=== PATIENT | male | born 1945 | race African-American/Black ===

== ENCOUNTER 2022-05-27 12:02 | Inpatient (IN) | payer MEDICARE ==
[~2022-05-27] VITALS: Ht 175.3 cm; Wt 73.4 kg
[2022-05-27] MEDS ORDERED: MORPHINE SULFATE 4 MG/ML CPJ (NOT FOR IM USE) IV STA (12:20)
[2022-05-27] MEDS ORDERED: SODIUM CHLORIDE 0.9% 1,000 ML IV ONE ×3 (12:30→16:15)
[2022-05-27 13:12] LABS: HEMATOCRIT. 52.9 % (42.0-52.0); HEMOGLOBIN. 17.8 g/dL (14.0-18.0); MEAN CORPUSCULAR HEMOGLOBIN 29.6 pg (28.0-32.0); MEAN CORPUSCULAR VOLUME 87.9 fL (80.0-94.0); MEAN PLATELET VOLUME 7.9 fl (7.4-10.4); PLATELET 265 x1000/uL (130-400); RED BLOOD CELL COUNT 6.02 mill/uL (4.7-6.1); RED CELL DISTRIBUTION WIDTH 12.6 % (11.6-14.6)
[2022-05-27 13:28] LABS: CREATINE KINASE 509 IU/L (39-308)
[2022-05-27 13:34] LABS: CHLORIDE 94 mEq/L (98-107)
[2022-05-27 13:57] LABS: PLATELET ESTIMATE NORMAL
[2022-05-27] MEDS ORDERED: ONDANSETRON HCL 4MG/2ML INJ IV ONE (14:30)
[2022-05-27] MEDS ORDERED: CEFTRIAXONE 2GM/50ML (ADDEASE) 50 ML IV ONE (16:15)
[2022-05-27] MEDS ORDERED: CEFTRIAXONE 2 G in DEXTROSE 5% WATER 50 ML IV NR (16:15)
[2022-05-27 16:26] LABS: CLARITY URINE CLEAR (CLEAR); COLOR URINE YELLOW (YELLOW); KETONES URINE 1+ (NEGATIVE); LEUKOCYTE ESTERASE URINE NEGATIVE (NEGATIVE); NITRITE URINE NEGATIVE (NEGATIVE); OCCULT BLOOD URINE 1+ (NEGATIVE); PROTEIN URINE 1+ (NEGATIVE)
[2022-05-27] MEDS ORDERED: MORPHINE SULFATE 4 MG/ML CPJ (NOT FOR IM USE) IV ONE (17:15)
[2022-05-27] MEDS ORDERED: LABETALOL 5MG/ML SYR 20 MG/4 ML SYRINGE IV ONE (20:30)
[2022-05-27 21:30] VITALS: BP 182/90
[2022-05-27 21:50] VITALS: BP 182/90
[2022-05-28] VITALS (8 sets, daily range): BP systolic 133–185; BP diastolic 63–95
[2022-05-28] MEDS ORDERED: SODIUM CHLORIDE 0.9% 1,000 ML IV SCH
[2022-05-28] MEDS ORDERED: CEFTRIAXONE 1GM PREMIX 50 ML IV SCH
[2022-05-28] MEDS: ONDANSETRON HCL 4MG/2ML INJ IV PRN (00:37)
[2022-05-28] MEDS: HYDRALAZINE 20MG/ML VIAL IV PRN (00:37)
[2022-05-28] MEDS: MORPHINE SULFATE 2 MG/ML CPJ (NOT FOR IM USE) IV PRN ×6 (00:37→21:14)
[2022-05-28] MEDS: METRONIDAZOLE 500 MG PREMIX 100 ML IV SCH ×3 (01:40→17:39)
[2022-05-28 07:01] LABS: HEMATOCRIT. 47.2 % (42.0-52.0); HEMOGLOBIN. 15.5 g/dL (14.0-18.0); MEAN CORPUSCULAR HEMOGLOBIN 29.8 pg (28.0-32.0); MEAN CORPUSCULAR VOLUME 90.7 fL (80.0-94.0); MEAN PLATELET VOLUME 7.8 fl (7.4-10.4); PLATELET 196 x1000/uL (130-400); RED BLOOD CELL COUNT 5.21 mill/uL (4.7-6.1); RED CELL DISTRIBUTION WIDTH 12.7 % (11.6-14.6)
[2022-05-28 07:26] LABS: CHLORIDE 105 mEq/L (98-107)
[2022-05-28 08:45] LABS: CREATINE KINASE 602 IU/L (39-308)
[2022-05-28] MEDS: PANTOPRAZOLE SODIUM 40 MG/VIAL IV SCH ×2 (12:06→17:45)
[2022-05-28 13:26] LABS: PLATELET ESTIMATE NORMAL
[2022-05-28] MEDS: DEXT 5%/0.9% NACL 1,000 ML IV SCH (14:17)
[2022-05-28] MEDS ORDERED: CLONIDINE HCL 0.1MG/24HR PATCH TD SCH (15:30)
[2022-05-28 15:34] LABS: *AMPHETAMINES SCREEN URINE NEGATIVE (NEGATIVE); *BARBITURATES SCREEN URINE NEGATIVE (NEGATIVE); *BENZODIAZEPINES SCREEN URINE NEGATIVE (NEGATIVE); *COCAINE SCREEN URINE NEGATIVE (NEGATIVE); CANNABINOID URINE SCREEN NEGATIVE (NEGATIVE); METHADONE URINE SCREEN NEGATIVE (NEGATIVE); OPIATES URINE SCREEN PRESUMTIVE POSITIVE (NEGATIVE); PHENCYCLIDINE URINE SCREEN NEGATIVE (NEGATIVE)
[2022-05-28] MEDS ORDERED: NALOXONE HCL 0.4MG/ML VIAL IV PRN (17:15)
[2022-05-28] MEDS: CEFTRIAXONE 1,000 MG in DEXTROSE 5% WATER 50 ML IV SCH (17:38)
[2022-05-28 20:03] LABS: HEMATOCRIT 41.2 % (42.0-52.0); HEMOGLOBIN 13.8 g/dL (14.0-18.0)
[2022-05-28 20:20] LABS: INR 1.1; PROTHROMBIN TIME 11.3 sec (9.6-11.0)
[2022-05-28 20:54] LABS: FOLIC ACID (FOLATE) SERUM 8.8 ng/mL (>5.38)
[2022-05-28] MEDS ORDERED: SODIUM CHLORIDE 0.9% 500 ML IV ONE (21:45)
[2022-05-28] MEDS ORDERED: BUPIVACAINE HCL/PF 0.5% (5MG/ML) 10ML ONE (22:37)
[2022-05-28] MEDS ORDERED: LIDOCAINE HCL 1% 20ML VIAL (Pyxis) INJ ONE (22:37)
[2022-05-28] MEDS ORDERED: ROCURONIUM BROMIDE 10MG/ML VIAL 5ML IV ONE (22:47)
[2022-05-28] MEDS ORDERED: ETOMIDATE 2MG/ML 10ML VIAL IV ONE (22:47)
[2022-05-28] MEDS ORDERED: MIDAZOLAM HCL 2 MG/2 ML VIAL ONE (22:55)
[2022-05-28] MEDS ORDERED: DEXAMETHASONE 4MG/ML 1ML VIAL ONE (23:02)
[2022-05-28] MEDS ORDERED: ONDANSETRON HCL 4MG/2ML INJ ONE (23:02)
[2022-05-28] MEDS ORDERED: CEFAZOLIN SODIUM 1000MG/VIAL ONE (23:03)
[2022-05-28] MEDS ORDERED: GLYCOPYRROLATE 0.2 MG/ML 2ML VIAL ONE (23:03)
[2022-05-28] MEDS ORDERED: FENTANYL CITRATE/PF 50MCG/ML 2ML VIAL ONE (23:03)
[2022-05-29] VITALS (9 sets, daily range): BP systolic 146–193; BP diastolic 59–99
[2022-05-29] MEDS ORDERED: ONDANSETRON HCL 4MG/2ML INJ IV PRN (00:15)
[2022-05-29] MEDS ORDERED: HYDROMORPHONE HCL/PF 2MG/ML CPJ IV PRN (00:15)
[2022-05-29] MEDS ORDERED: MEPERIDINE HCL/PF 25MG/ML CPJ IV PRN (00:15)
[2022-05-29] MEDS: DEXT 5%/0.9% NACL 1,000 ML IV SCH ×3 (00:15→20:08)
[2022-05-29] MEDS ORDERED: POLYMYXIN B SULFATE 500000 UNITS/VIAL ONE (00:51)
[2022-05-29] MEDS ORDERED: ALBUMIN HUMAN 12.5GM/50ML (25%) IV ONE (00:58)
[2022-05-29] MEDS ORDERED: FENTANYL CITRATE/PF 50MCG/ML 2ML VIAL ONE (01:08)
[2022-05-29] MEDS: FENTANYL CITRATE/PF 50MCG/ML 2ML VIAL IV PRN ×4 (01:50→02:26)
[2022-05-29] MEDS ORDERED: LABETALOL 5MG/ML SYR 20 MG/4 ML SYRINGE IV PRN (02:15)
[2022-05-29] MEDS: METRONIDAZOLE 500 MG PREMIX 100 ML IV SCH ×3 (04:11→18:09)
[2022-05-29] MEDS: HYDRALAZINE 20MG/ML VIAL IV PRN ×2 (06:41→20:35)
[2022-05-29 07:41] LABS: HEMATOCRIT. 48.8 % (42.0-52.0); HEMOGLOBIN. 15.9 g/dL (14.0-18.0); MEAN CORPUSCULAR HEMOGLOBIN 29.6 pg (28.0-32.0); MEAN CORPUSCULAR VOLUME 90.8 fL (80.0-94.0); MEAN PLATELET VOLUME 8.2 fl (7.4-10.4); PLATELET 178 x1000/uL (130-400); RED BLOOD CELL COUNT 5.37 mill/uL (4.7-6.1); RED CELL DISTRIBUTION WIDTH 12.9 % (11.6-14.6)
[2022-05-29 08:36] LABS: CHLORIDE 115 mEq/L (98-107)
[2022-05-29 08:46] LABS: PHOSPHORUS 3.1 mg/dL (2.5-4.9)
[2022-05-29] MEDS: PANTOPRAZOLE SODIUM 40 MG/VIAL IV SCH ×2 (09:17→16:55)
[2022-05-29] MEDS: MORPHINE SULFATE 4 MG/ML CPJ (NOT FOR IM USE) IV PRN ×3 (10:15→20:09)
[2022-05-29 11:48] LABS: BG BASE EXCESS -2.9 mmol/L (-2.0-2.0); BG CARBOXYHEMOGLOBIN 0.8 % (0.5-1.5); BG DEOXYHEMOGLOBIN 3.1 % (0.0-5.0); BG FRACTION INSPIRED OXYGEN 21; BG HCO3 ACT 21.1 mmol/L (22.0-26.0); BG METHEMOGLOBIN 0.4 % (0.0-1.5); BG OXYGEN SATURATION 96.9 % (92.0-98.5); BG OXYHEMOGLOBIN 95.7 % (94.0-97.0); BG PCO2 34.7 mmHg (35.0-45.0); BG PH 7.402 (7.350-7.450); BG PO2 86.9 mmHg (75.0-100.0); BG SAMPLE SITE LEFT RADIAL; BG TOTAL HEMOGLOBIN 15.1 g/dL (12.0-18.0); BG VENT MODE ROOM AIR
[2022-05-29 13:06] LABS: HEMOGLOBIN 14.6 g/dL (14.0-18.0)
[2022-05-29 14:16] LABS: PLATELET ESTIMATE NORMAL
[2022-05-29] MEDS ORDERED: CLONIDINE HCL 0.2MG/24HR PATCH TD SCH (15:00)
[2022-05-29] MEDS: CEFTRIAXONE 1,000 MG in DEXTROSE 5% WATER 50 ML IV SCH (16:51)
[2022-05-29] MEDS: LABETALOL 5MG/ML SYR 20 MG/4 ML SYRINGE IV PRN (23:15)
[2022-05-30] VITALS: BP 155/78
[2022-05-30] MEDS: MORPHINE SULFATE 4 MG/ML CPJ (NOT FOR IM USE) IV PRN (00:31)
[2022-05-30] MEDS: METRONIDAZOLE 500 MG PREMIX 100 ML IV SCH ×3 (01:12→18:21)
[2022-05-30 04:00] VITALS: BP 115/65
[2022-05-30] MEDS: DEXT 5%/0.9% NACL 1,000 ML IV SCH (05:18)
[2022-05-30 07:14] LABS: HEMATOCRIT. 39.9 % (42.0-52.0); HEMOGLOBIN. 12.9 g/dL (14.0-18.0); MEAN CORPUSCULAR HEMOGLOBIN 28.9 pg (28.0-32.0); MEAN CORPUSCULAR VOLUME 89.2 fL (80.0-94.0); MEAN PLATELET VOLUME 8.4 fl (7.4-10.4); PLATELET 211 x1000/uL (130-400); RED BLOOD CELL COUNT 4.47 mill/uL (4.7-6.1); RED CELL DISTRIBUTION WIDTH 12.5 % (11.6-14.6)
[2022-05-30 07:32] LABS: CHLORIDE 120 mEq/L (98-107)
[2022-05-30 08:00] VITALS: BP 167/60
[2022-05-30] MEDS: PANTOPRAZOLE SODIUM 40 MG/VIAL IV SCH ×2 (10:14→18:21)
[2022-05-30] MEDS: HYDRALAZINE 20MG/ML VIAL IV PRN ×2 (10:14→21:18)
[2022-05-30 10:41] LABS: PLATELET ESTIMATE NORMAL
[2022-05-30 12:00] VITALS: BP 176/93
[2022-05-30] MEDS ORDERED: KCL 20MEQ/100ML PREMIX 100 ML IV SCH (15:00)
[2022-05-30 16:00] VITALS: BP 158/67
[2022-05-30] MEDS: DEXT 5%/0.2% NACL 1,000 ML IV SCH (16:03)
[2022-05-30] MEDS: CEFTRIAXONE 1,000 MG in DEXTROSE 5% WATER 50 ML IV SCH (16:47)
[2022-05-30 20:00] VITALS: BP 177/78
[2022-05-31] VITALS: BP 146/76
[2022-05-31] MEDS: METRONIDAZOLE 500 MG PREMIX 100 ML IV SCH ×3 (01:14→16:40)
[2022-05-31 04:00] VITALS: BP 164/58
[2022-05-31 08:00] VITALS: BP 155/90
[2022-05-31] MEDS: PANTOPRAZOLE SODIUM 40 MG/VIAL IV SCH ×2 (08:42→16:40)
[2022-05-31] MEDS: DEXT 5%/0.2% NACL 1,000 ML IV SCH ×2 (08:42)
[2022-05-31] MEDS: ENOXAPARIN 30MG/0.3ML SYR SUBCUT SCH (11:36)
[2022-05-31 12:00] VITALS: BP 152/89
[2022-05-31] MEDS ORDERED: DEXT 5% WATER 100 ML IV ONE (15:15)
[2022-05-31 16:00] VITALS: BP 156/78
[2022-05-31] MEDS: DEXTROSE 5% WATER 1,000 ML IV SCH (16:40)
[2022-05-31] MEDS: CEFTRIAXONE 1,000 MG in DEXTROSE 5% WATER 50 ML IV SCH (16:40)
[2022-05-31 20:00] VITALS: BP 176/147
[2022-05-31] MEDS: HYDRALAZINE 20MG/ML VIAL IV PRN (21:06)
[2022-05-31] MEDS: MORPHINE SULFATE 4 MG/ML CPJ (NOT FOR IM USE) IV PRN (21:06)
[2022-06-01] VITALS: BP 175/68
[2022-06-01] MEDS: HYDRALAZINE 20MG/ML VIAL IV PRN ×3 (01:05→12:38)
[2022-06-01] MEDS: METRONIDAZOLE 500 MG PREMIX 100 ML IV SCH ×3 (01:05→16:45)
[2022-06-01 04:00] VITALS: BP 169/68
[2022-06-01] MEDS: DEXTROSE 5% WATER 1,000 ML IV SCH ×2 (04:52→16:46)
[2022-06-01] MEDS: LABETALOL 5MG/ML SYR 20 MG/4 ML SYRINGE IV PRN (06:11)
[2022-06-01 07:23] LABS: HEMATOCRIT. 38.3 % (42.0-52.0); HEMOGLOBIN. 12.9 g/dL (14.0-18.0); MEAN CORPUSCULAR HEMOGLOBIN 29.7 pg (28.0-32.0); MEAN CORPUSCULAR VOLUME 88.1 fL (80.0-94.0); MEAN PLATELET VOLUME 8.3 fl (7.4-10.4); PLATELET 252 x1000/uL (130-400); RED BLOOD CELL COUNT 4.35 mill/uL (4.7-6.1); RED CELL DISTRIBUTION WIDTH 12.7 % (11.6-14.6)
[2022-06-01 08:00] VITALS: BP 174/81
[2022-06-01 08:04] LABS: CHLORIDE 119 mEq/L (98-107)
[2022-06-01] MEDS: PANTOPRAZOLE SODIUM 40 MG/VIAL IV SCH ×2 (08:17→16:45)
[2022-06-01 08:18] LABS: PHOSPHORUS 1.2 mg/dL (2.5-4.9)
[2022-06-01] MEDS: ENOXAPARIN 30MG/0.3ML SYR SUBCUT SCH (08:18)
[2022-06-01] MEDS: KCL 20MEQ/100ML PREMIX 100 ML IV SCH ×2 (10:33→11:52)
[2022-06-01] MEDS ORDERED: POTASSIUM PHOS,M-BASIC-D-BASIC 30 MMOL in DEXT 5% WATER 500 ML IV NR (10:45)
[2022-06-01 12:00] VITALS: BP 176/77
[2022-06-01] MEDS: AMLODIPINE 10MG TABLET PO SCH (13:00)
[2022-06-01] MEDS: HYDRALAZINE HCL 25MG TABLET PO SCH ×2 (13:00→21:24)
[2022-06-01 13:32] LABS: PLATELET ESTIMATE NORMAL
[2022-06-01] MEDS: CEFTRIAXONE 1,000 MG in DEXTROSE 5% WATER 50 ML IV SCH (15:09)
[2022-06-01 16:00] VITALS: BP 147/76
[2022-06-01 20:00] VITALS: BP 148/70
[2022-06-01] MEDS: METOCLOPRAMIDE HCL 10MG/2ML VIAL IV SCH (21:08)
[2022-06-01] MEDS: MORPHINE SULFATE 4 MG/ML CPJ (NOT FOR IM USE) IV PRN (21:46)
[2022-06-02] VITALS (7 sets, daily range): BP systolic 115–158; BP diastolic 69–88
[2022-06-02] MEDS: METOCLOPRAMIDE HCL 10MG/2ML VIAL IV SCH ×4 (00:25→17:03)
[2022-06-02] MEDS: METRONIDAZOLE 500 MG PREMIX 100 ML IV SCH (00:42)
[2022-06-02] MEDS: DEXTROSE 5% WATER 1,000 ML IV SCH ×2 (06:00→13:51)
[2022-06-02 07:33] LABS: HEMATOCRIT. 41.3 % (42.0-52.0); HEMOGLOBIN. 13.5 g/dL (14.0-18.0); MEAN CORPUSCULAR HEMOGLOBIN 28.8 pg (28.0-32.0); MEAN CORPUSCULAR VOLUME 88.1 fL (80.0-94.0); MEAN PLATELET VOLUME 7.9 fl (7.4-10.4); PLATELET 257 x1000/uL (130-400); RED BLOOD CELL COUNT 4.68 mill/uL (4.7-6.1); RED CELL DISTRIBUTION WIDTH 13.1 % (11.6-14.6)
[2022-06-02 08:25] LABS: PHOSPHORUS 3.5 mg/dL (2.5-4.9)
[2022-06-02 09:58] LABS: PLATELET ESTIMATE NORMAL
[2022-06-02] MEDS: PANTOPRAZOLE SODIUM 40 MG/VIAL IV SCH ×2 (09:59→17:03)
[2022-06-02] MEDS: HYDRALAZINE HCL 25MG TABLET PO SCH ×2 (09:59→20:30)
[2022-06-02] MEDS: AMLODIPINE 10MG TABLET PO SCH (10:00)
[2022-06-02] MEDS: ENOXAPARIN 30MG/0.3ML SYR SUBCUT SCH (10:00)
[2022-06-02] MEDS ORDERED: KCL 20MEQ/100ML PREMIX 100 ML IV NR (11:00)
[2022-06-02] MEDS ORDERED: CEFTRIAXONE 1GM PREMIX 50 ML IV SCH (16:00)
[2022-06-02] MEDS: HYDRALAZINE 20MG/ML VIAL IV PRN (17:34)
[2022-06-02] MEDS: ONDANSETRON HCL 4MG/2ML INJ IV PRN (20:30)
[2022-06-02] MEDS: MORPHINE SULFATE 4 MG/ML CPJ (NOT FOR IM USE) IV PRN (20:31)
[2022-06-02] MEDS ORDERED: NOREPINEPHRINE 8 MG in DEXT 5% WATER 242 ML IV PRN (21:45)
[2022-06-02] MEDS ORDERED: EPINEPHRINE 10 MG in SODIUM CHLORIDE 0.9% 250 ML IV PRN (22:15)
[2022-06-03] MEDS ORDERED: ENOXAPARIN 40MG/0.4ML SYR SUBCUT SCH (09:00)
[2022-06-03] MEDS ORDERED: SODIUM BICARBONATE 8.4% 1 MEQ/ML 50ML SYR IV ONE (09:39)
[2022-06-03] MEDS ORDERED: CALCIUM CHLORIDE 1GM/10ML SYR IV ONE (09:39)
[2022-06-03] MEDS ORDERED: ATROPINE SULFATE 1MG/10ML SYR ONE (09:39)
[2022-06-03] MEDS ORDERED: EPINEPHRINE 0.1MG/ML (1:10,000) 10ML SYR ONE (09:39)
[2022-06-03] MEDS ORDERED: DEXTROSE 50% WATER 50ML SYRINGE IV ONE (09:39)
== END 2022-06-02 22:33 | DRG 853 ==
LOC: ER 12:02 → EDBEDREQ 17:34 → ENRESERV 19:15 → 7EST 21:35
PROVIDERS: ADMIT Internal Medicine; ATTEND Internal Medicine
PROC: 0DT80ZZ Resection of Small Intestine, Open Approach (ICD-10-PCS; principal; 2022-05-28)
PROC: 07TB0ZZ Resection of Mesenteric Lymphatic, Open Approach (ICD-10-PCS; 2022-05-28)
PROC: 06HY33Z Insertion of Infusion Device into Lower Vein, Percutaneous Approach (ICD-10-PCS; 2022-06-02)
PROC: 5A12012 Performance of Cardiac Output, Single, Manual (ICD-10-PCS; 2022-06-02)
PROC: 0BH17EZ Insertion of Endotracheal Airway into Trachea, Via Natural or Artificial Opening (ICD-10-PCS; 2022-06-02)
DX: A41.9 Sepsis, unspecified organism (principal); G92.8 Other toxic encephalopathy; N17.0 Acute kidney failure with tubular necrosis; E87.20 Acidosis, unspecified; I16.1 Hypertensive emergency; M62.82 Rhabdomyolysis; E87.0 Hyperosmolality and hypernatremia; K56.609 Unspecified intestinal obstruction, unspecified as to partial versus complete obstruction; K56.7 Ileus, unspecified; R65.20 Severe sepsis without septic shock; E88.09 Other disorders of plasma-protein metabolism, not elsewhere classified; D3A.00 Benign carcinoid tumor of unspecified site; E86.0 Dehydration; I12.9 Hypertensive chronic kidney disease with stage 1 through stage 4 chronic kidney disease, or unspecified chronic kidney disease; K80.20 Calculus of gallbladder without cholecystitis without obstruction; N18.9 Chronic kidney disease, unspecified; G89.29 Other chronic pain; R74.01 Elevation of levels of liver transaminase levels; Z78.1 Physical restraint status; Z86.73 Personal history of transient ischemic attack (TIA), and cerebral infarction without residual deficits; Z86.74 Personal history of sudden cardiac arrest; Z82.49 Family history of ischemic heart disease and other diseases of the circulatory system
CPT/HCPCS: 36415; 36600; 71045; 72131; 74018; 74176; 76700; 80048; 80053; 80061; 80305; 81003; 82140; 82270; 82375; 82550; 82607; 82728; 82746; 82805; 82962; 83036; 83540; 83550; 83605; 83735; 84100; 84145; 84443; 85014; 85018; 85025; 85044; 86850; 86900; 87076; 87426; 88307; 93005; 93306; 97162; 99291; C1893; C9113; J0360; J0461; J0690; J0696; J1100; J1170; J1650; J2250; J2270; J2405; J2765; J3010; J3480; J3490; J7030; J7042; J7060; J7070; P9047